=== PATIENT | male | born 1995 | race American Indian/Alaskan Native ===

== ENCOUNTER 2019-04-12 20:35 | Emergency (ER) | payer SELFPAY ==
--- NOTE | 2019-04-12 20:55 | Event Note ---
ED Screening Note Date of service: 04/12/19 Time: 20:52 ED Screening Note: This is a 23 y.o. M. that presents to the ER with pelvic pain and left testicle pain x 1 week. States female partner informed him of positive GC diagnosis. Denies penile discharge, back pain This initial assessment/diagnostic orders/clinical plan/treatment(s) is/are subject to change based on patients health status, clinical progression and re- assessment by fellow clinical providers in the ED. Further treatment and workup at subsequent clinical providers discretion. Patient/guardian urged not to elope from the ED as their condition may be serious if not clinically assessed and managed. Initial orders include: UA
[2019-04-12 21:43] LABS: Bilirubin,Urine NEG (Negative); Blood,Urine NEG (Negative); Color,Urine Yellow (Yellow); Protein,Urine <15 mg/dL mg/dL (Negative)
[2019-04-12] MEDS ORDERED: ROCEPHIN IM STA (23:05)
[2019-04-12] MEDS ORDERED: XYLOCAINE 1% MPF 5 mL INFILTRATI ONE (23:05)
[2019-04-12] MEDS ORDERED: ZITHROMAX PO STA (23:05)
--- NOTE | 2019-04-12 23:13 | Emergency Department Report ---
ED Male HPI - General Chief complaint: Urogenital-Male Stated complaint: POSS STD Time Seen by Provider: 04/12/19 20:51 Source: patient Mode of arrival: Ambulatory Limitations: No Limitations - History of Present Illness Initial comments: 23-year-old male whose mother department complaining of coming in contact with gonorrhea and chlamydia from his girlfriend, which he thinks he contracted from his baby mama about 3 weeks ago. States that he had sexual intercourse with her and her friends normal. Nose that she has chlamydia and gonorrhea. He had contracted that and give it to his girlfriend, although he is experiencing is low pelvic cramping reports no hematuria or dysuria. No fever, chills, sweats. No chest pain or palpitations. No testicular pain, no nausea no vomiting. All rash size the eczema which she has a normal a long history of - Related Data Previous Rx's Medication Instructions Recorded Last Taken Type Ibuprofen [Motrin] 600 mg PO Q8H PRN #30 tablet 01/14/15 Unknown Rx Allergies Allergy/AdvReac Type Severity Reaction Status Date / Time No Known Allergies Allergy Unverified 04/12/19 20:40 ED Review of Systems ROS: Stated complaint: POSS STD Other details as noted in HPI Comment: All other systems reviewed and negative ED Past Medical Hx - Past Medical History Previous Medical History?: Yes Additional medical history: high cholesterol, ECZEMA - Surgical History Past Surgical History?: No - Social History Smoking Status: Current Every Day Smoker Substance Use Type: Alcohol - Medications Home Medications: Home Medications Medication Instructions Recorded Confirmed Last Taken Type Ibuprofen [Motrin] 600 mg PO Q8H PRN #30 tablet 01/14/15 Unknown Rx ED Physical Exam - General Limitations: No Limitations General appearance: alert, in no apparent distress - Head Head exam: Present: atraumatic, normocephalic - Eye Eye exam: Present: normal appearance, PERRL, EOMI - ENT ENT exam: Present: normal exam, mucous membranes moist - Neck Neck exam: Present: normal inspection - Respiratory Respiratory exam: Present: normal lung sounds bilaterally. Absent: respiratory distress - Cardiovascular Cardiovascular Exam: Present: regular rate, normal rhythm. Absent: systolic murmur, diastolic murmur, rubs, gallop - GI/Abdominal GI/Abdominal exam: Present: soft, normal bowel sounds - Rectal Rectal exam: Present: deferred - Extremities Exam Extremities exam: Present: normal inspection - Back Exam Back exam: Present: normal inspection, full ROM. Absent: CVA tenderness (R), CVA tenderness (L) - Neurological Exam Neurological exam: Present: alert, oriented X3, CN II-XII intact - Psychiatric Psychiatric exam: Present: normal affect, normal mood - Skin Skin exam: Present: warm, dry, intact, normal color. Absent: rash ED Course Vital Signs 04/12/19 20:52 Temperature 98.3 F Pulse Rate 95 H Respiratory 18 Rate Blood Pressure 125/65 O2 Sat by Pulse 98 Oximetry ED Medical Decision Making - Medical Decision Making 20-year-old [place] male who sexual contact STD was provided with appropriate treatment will in the emergency department this evening also educated on safe sex. Advised follow-up with [facility] for further evaluation if STD Critical care attestation.: If time is entered above; I have spent that time in minutes in the direct care of this critically ill patient, excluding procedure time. ED Disposition Clinical Impression: Exposure to STD, Acute gonococcal urethritis Disposition: TO HOME OR SELFCARE Is pt being admited?: No Does the pt Need Aspirin: No Condition: Stable Instructions: Gonococcal Urethritis (ED), Sexually Transmitted Diseases (ED), Chlamydia Infection (ED), Safe Sex (ED) Additional Instructions: Please be sure to follow with [facility] for definitive management and treatment of the STDs for further STD evaluation. Been provided treatment for the suspicious pathogens that we spoke about Referrals: FELIPE WOODS MD [Primary Care Provider] - 3-5 Days [facility] [Outside] - 3-5 Days
[2019-04-13 01:50] VITALS: BP 123/63
== END 2019-04-13 01:48 | disposition home or self-care (01) ==
LOC: ED 20:35
DX: A54.01 Gonococcal cystitis and urethritis, unspecified (principal); A64 Unspecified sexually transmitted disease
CPT/HCPCS: 81001; 87086; 96372; 99283; J0696